=== PATIENT | male | born 1945 | race Caucasian/White ===

== ENCOUNTER → 2021-04-17 | Outpatient (CLI) | payer OTHER ==
[~2021-04-17] MED LIST: ACETAMINOPHEN325 M1 PO; ADULT LOW DOSE81 MG PO; CIALIS5 MG PO; CO Q-10100 MG PO; CO-ENZYME Q-1010 MG PO; COLACE100 MG PO; EXCEDRIN CAPLE1 EACH PO; FISH OIL 1,0001 EAC5 PO; MELATONIN3 M1 PO; MULTIVITAMINS PO; VICODIN 5-5001 EACH; VITAMIN D375 MCG PO; VITAMINC500 PO; ZOCOR 20 MG TAB20 M1 PO
== END ==
LOC: LAB 06:33
PROVIDERS: ATTEND Student in an Organized Health Care Education/Training Program
DX: Z01.812 Encounter for preprocedural laboratory examination (principal); Z20.822 Contact with and (suspected) exposure to COVID-19

== ENCOUNTER → 2021-04-19 | Outpatient (CLI) | payer OTHER ==
[~2021-04-19] VITALS: Ht 177.8 cm; Wt 86.2 kg
--- NOTE | 2021-04-21 13:55 | P ---
[facility] [place] [address] PROCEDURE REPORT Name: JENSEN ANN [id number] Admission: 04/19/21 Attend Phys: Darren Samayoa Discharge: Date of : 45 Report #: [id number] THIS REPORT FOR: cc: Jose Roberto Peck MD, Rene P. MD McElhinney, Christian C. MD ~ DOC #: [id number] cc: MD Darren Aguirre MD DATE OF SERVICE: 04/19/2021 PROCEDURE PERFORMED: Upper endoscopy with biopsies. HISTORY OF PRESENT ILLNESS: The patient is a 75-year-old male who reports intermittent indigestion. He describes this as mild heartburn at times as well as discomfort. Tums is helpful, which he takes on a p.r.n. basis. He denies any nausea, vomiting or dysphagia. No previous history of endoscopy. He does take 81 mg aspirin on a regular basis. He also has noticed some diarrhea recently. Plan is for EGD and colonoscopy today. DESCRIPTION OF PROCEDURE: The risks and benefits of the procedure were explained to the patient, those risks including but not limited to bleeding, perforation and the risk of sedation. He understood these risks and gave me informed consent. Sedation was given using propofol per anesthesia. Next, using a standard Olympus upper endoscope, the scope was placed in the patient's mouth and advanced under direct vision through the esophagus, stomach and into the second portion of the duodenum. The upper and mid esophagus was normal in appearance. In the distal esophagus, a possible short segment of Benítez's was noted. Biopsies were obtained. No evidence of esophagitis. Upon entering the stomach, a small hiatal hernia was noted. There was a mild gastritis noted in the body and antrum. No evidence of ulcerations or erosions. Biopsies were obtained to rule out H. pylori. The pylorus was normal and patent. The duodenal bulb, first and second portion were all normal. Biopsies were also obtained to rule out the possibility of celiac sprue. The scope was then withdrawn and the procedure terminated. The patient tolerated the procedure well. IMPRESSION: 1. 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 2. Small hiatal hernia. 3. Mild gastritis. 4. Otherwise, normal upper endoscopy. RECOMMENDATIONS: 1. Await biopsy results. [address] [address] PROCEDURE REPORT Name: JENSEN ANN Room #: REG SURYA Solorio#: [id number] Admission: 04/19/21 Attend Phys: Darren Samayoa Discharge: Date of : 45 Report #: [id number] 2. Recommend daily PPI therapy long-term, if the patient has Benítez's esophagus. If biopsies are negative, could consider PPI therapy or other antacid therapies on a p.r.n. basis, depending on his heartburn symptoms. 3. We will proceed with colonoscopy next today. Thank you for allowing me to participate in his care. Darren Stephens MD [facility] <ELECTRONICALLY SIGNED> By: Darren Stephens MD 04/21/21 1355 [id number] [id number] Darren Stephens MD /nt
--- NOTE | 2021-04-21 13:55 | P ---
[facility] [place] [address] PROCEDURE REPORT Name: JENSEN ANN [id number] Admission: 04/19/21 Attend Phys: Darren Samayoa Discharge: Date of : 45 Report #: [id number] THIS REPORT FOR: cc: Jose Roberto Peck MD, Rene P. MD McElhinney, Christian C. MD ~ DOC #: [id number] cc: MD Darren Aguirre MD DATE OF SERVICE: 04/19/2021 PROCEDURE PERFORMED: Colonoscopy with biopsies. HISTORY OF PRESENT ILLNESS: The patient is a 75-year-old male who presents today for routine screening colonoscopy. No family history of colon cancer. Last colonoscopy was approximately 10 years ago and reportedly negative. He does report loose stools recently. Denies any abdominal pain, no blood in the stools. DESCRIPTION OF PROCEDURE: The risks and benefits of the procedure were explained to the patient, those risks including but not limited to bleeding, perforation and the risk of sedation. He understood these risks and gave informed consent. Sedation was given using propofol per anesthesia. Next, a digital rectal exam showed external hemorrhoids, otherwise normal. Next, using an Olympus standard colonoscope, the scope was placed in the patient's anus and advanced under direct vision to the cecum. The overall prep was good. The cecum and ileocecal valve were normal in appearance. The ascending colon was normal. Random biopsies were obtained to rule out the possibility of microscopic colitis. In the transverse colon, a 4 mm sessile polyp was noted. This was removed with cold forceps, otherwise normal. Descending colon was normal. A few small scattered diverticula were noted in the sigmoid colon. No evidence of inflammation, otherwise normal. The rectal mucosa was normal. On retroflexion, no abnormalities were noted. Again, external hemorrhoids were seen. No evidence of bleeding. The scope was then withdrawn and the procedure terminated. The patient tolerated the procedure well. IMPRESSION: 1. Small colonic polyp. 2. Sigmoid diverticulosis. 3. External hemorrhoids. 4. Otherwise, normal colonoscopy. RECOMMENDATIONS: 1. Await biopsy results. 2. Recommend trial of probiotics. [address] [address] PROCEDURE REPORT Name: JENSEN ANN Room #: REG [facility] [place].#: [id number] Admission: 04/19/21 Attend Phys: Darren Samayoa Discharge: Date of : 45 Report #: [id number] 3. If polyp is hyperplastic, consider repeat colonoscopy in 10 years; if adenomatous polyp, repeat in 5 years. Thank you for allowing me to participate in his care. Darren Stephens MD CCM/VIS <ELECTRONICALLY SIGNED> By: Darren Stephens MD 04/21/21 1355 [id number] 2207 Darren Stephens MD /nt
--- NOTE | 2021-04-21 16:06 | PATH ---
[facility] [address] [place] [address] PATHOLOGY RPT PROCEDURE Name: JENSEN JAMES Room #: REG SURYA Gaston.#: [id number] Admission: 04/19/21 Date of : 45 Discharge: Report #: [id number] Path Case #: [id number] [facility] Accession Number: [id number] . 01 Material submitted: . PART A: duodenum - DUODENAL BIOPSY PART B: ANTRUM - GASTRITIS ANTRAL BIOPSY R/O H PYLORI PART C: esophagus - DISTAL ESOPHAGUS BIOPSY R/0 BARRETTS. Modifiers: distal PART D: colon - RANDOM COLON BIOPSY R/O MICROSCOPIC COLITIS PART E: colon - TRANSVERSE COLON POLYPS. Modifiers: transverse . 01 Clinical history: . [facility] HIATAL HERNIA GASTRITIS, POSS BARRETTS . 02 Diagnosis: A. Small bowel mucosa, duodenum rule out sprue, endoscopic biopsy: - No diagnostic abnormalities. - Negative for villous blunting or increase in intraepithelial lymphocytes. . B. Gastric mucosa, gastritis antral, endoscopic biopsy: - Mild reactive gastropathy. - Negative for intestinal metaplasia or atrophy. - Negative for Helicobacter pylori (properly controlled immunohistochemical stain performed). . C. Gastroesophageal mucosa, distal esophagus rule out Benítez's, endoscopic biopsy: - Gastric cardia-type mucosa with mild chronic inflammation. - Negative for intestinal metaplasia or dysplasia. - Squamous mucosa with mild esophagitis and features compatible with reflux esophagitis. . D. Large intestinal mucosa, random colon, endoscopic biopsy: - Mild to moderate active colitis involving all fragments sampled, see comment. - Negative for dysplasia or malignancy. . E. Polyp, transverse colon polyp, endoscopic biopsy: - Inflamed tubular adenoma. - Negative for high grade dysplasia. [facility] 04/21/2021 1212 Local . 02 Comment: Sections of the colonic mucosa designated "random colon" show focal cryptitis, and a moderately cellular lamina propria composed predominantly [address] [address] PATHOLOGY RPT PROCEDURE Name: JENSEN JAMES Room #: REG CLI [facility].#: [id number] Admission: 04/19/21 Date of : 45 Discharge: Report #: [id number] Path Case #: [id number] of lymphocytes and plasma cells and occasional eosinophils. Surface ulceration is not identified. There are no crypt abscesses, granulomas or viral inclusions. The process affects all the fragments with a similar intensity. Given the description, the differential diagnosis includes early inflammatory bowel disease, acute diverticulitis as well as medication or drug induced colitis. Please correlate with clinical as well as endoscopic findings. (IUV/db; 04/21/2021) . 02 Electronically signed: . Mary Pierce MD, Pathologist NPI- [id number] . 01 Gross description: . A. The specimen is received in formalin, labeled "Jensen James", "duodenal biopsy rule out C sprue". Received are multiple segments of pale james soft tissue ranging in size from 0.2 cm to 0.4 cm. The specimen is entirely submitted in cassette A1. . B. The specimen is received in formalin, labeled "Jensen James", "antral biopsy rule out gastritis and H. pylori". Received are multiple segments of pale james soft tissue ranging in size from 0.1 cm to 0.4 cm. The specimen is entirely submitted in cassette B1. . C. The specimen is received in formalin, labeled "Jensen James", "distal esophagus biopsy rule out Benítez's". Received are 2 segments of pale james soft tissue measuring 0.2 and 0.3 cm. The specimen is entirely submitted in cassette C1. . D. The specimen is received in formalin, labeled "Jensen James", "random colon biopsy rule out microscopic colitis". Received are multiple segments of pale james soft tissue ranging in size from 0.1 cm to 0.4 cm. The specimen is entirely submitted in cassette D1. . E. The specimen is received in formalin, labeled "Jensen James", "transverse colon polyp". Received is a single segment of pale james soft tissue measuring 0.2 cm. The specimen is entirely submitted in cassette E1.([facility]; 04/20/2021) AYAZ/MAGDALENO 04/20/[address] [place] [address] . 02 Pathologist provided ICD-10: K31.9, K29.50, K20.90, K52.9, D12.3 . 02 CPT . 130997, 798234, 277576, 171697, 277822, Y99131 Specimen Comment: A courtesy copy of this report has been sent to [phone] Specimen Comment: Report sent to Performed at: [address] [address] PATHOLOGY RPT PROCEDURE Name: JENSEN JAMES CATRACHITO Room #: REG CLI M.R.#: [id number] Admission: 04/19/21 Date of : 45 Discharge: Report #: [id number] Path Case #: [id number] [facility] [place] [address] [facility] [address], [place], [place] [id number] MD Noel Holley MD Phone: [phone] Performed at: 02 [facility] [address] [place], [place] [id number] MD Mary Pierce MD Phone: [phone]
== END | disposition home or self-care (01) ==
LOC: GI
PROVIDERS: ATTEND Specialist
DX: Z12.11 Encounter for screening for malignant neoplasm of colon (principal); K57.30 Diverticulosis of large intestine without perforation or abscess without bleeding; D12.3 Benign neoplasm of transverse colon; K63.89 Other specified diseases of intestine; K64.0 First degree hemorrhoids; K44.9 Diaphragmatic hernia without obstruction or gangrene; K29.50 Unspecified chronic gastritis without bleeding; K31.89 Other diseases of stomach and duodenum; K21.00 Gastro-esophageal reflux disease with esophagitis, without bleeding; Z79.899 Other long term (current) drug therapy; Z98.890 Other specified postprocedural states
CPT/HCPCS: 62110; 62900

== ENCOUNTER → 2022-01-22 | Outpatient (CLI) | payer OTHER | LOC: CAT 12:29 | PROVIDERS: ATTEND Nurse Practitioner | DX: R51.9 Headache, unspecified (principal) ==